=== PATIENT | female | born 1985 | race Caucasian/White ===

== ENCOUNTER 2022-05-04 16:01 | Outpatient (CLI) | payer MEDICAID, SELFPAY ==
--- NOTE | 2022-05-04 14:30 | DI.RAD_ITS ---
Exam(s) XR FOOT LT COMPLETE EXAM: XR FOOT LT COMPLETE CLINICAL HISTORY: prominent navicular: os vs avulsion vs bone cyst,[id number]. TECHNIQUE: 2D digital imaging was performed of the left foot. Three images were obtained. AP, obli que and lateral views were obtained. COMPARISON: No exams were available for comparison FINDINGS: BONES: No acute fracture is present. No bony destructive lesion is seen. There is no evidence of an a ccessory ossicle. JOINTS: No dislocation present. SOFT TISSUE: Normal. IMPRESSION: Unremarkable radiographs of the left foot. DATA REPOSITORY: RADIATION DOSE DELIVERED:
--- NOTE | 2022-05-04 14:30 | DI.RAD_ITS ---
Exam(s) XR FOOT RT COMPLETE EXAM: XR FOOT RT COMPLETE CLINICAL HISTORY: for comparison, bony prominence lt ankle. TECHNIQUE: 2D digital imaging was performed of the right foot. Three images were obtained. AP, obl ique and lateral views were obtained. COMPARISON: None. FINDINGS: BONES: No acute fracture is present. No bony destructive lesion is seen. JOINTS: No dislocation present. SOFT TISSUE: Normal. IMPRESSION: Unremarkable radiographs of the right foot. DATA REPOSITORY: RADIATION DOSE DELIVERED:
== END 2022-05-04 16:21 ==
LOC: DI 16:03
PROVIDERS: PCP Family Medicine; Visit Provider Podiatrist Foot & Ankle Surgery
DX: M89.8X7 Other specified disorders of bone, ankle and foot (principal)
CPT/HCPCS: 73630

== ENCOUNTER 2024-03-05 13:49 | Emergency (ER) | payer MEDICAID, SELFPAY ==
[2024-03-05 13:53] VITALS: BP 192/144; PULSE 102; RESP 18; TEMP 37.1; O2SAT 99
--- NOTE | 2024-03-05 14:00 | DI.CT_ITS ---
Exam(s) CT HEAD CERVICAL SPINE WO EXAM: CT HEAD CERVICAL SPINE WO CLINICAL HISTORY: fall, left head and neck pain. TECHNIQUE: Imaging Protocol: Axial computed tomography images with coronal and sagittal reformatted images were created and reviewed COMPARISON: No exams were available for comparison FINDINGS: Head CT Ventricles and Extra axial spaces: Normal in size and morphology for the patient's age. Hemorrhage: None. Cerebral parenchyma: No evidence of mass or acute infarct. Midline shift: None. Brainstem/Cerebellum: Normal. Calvarium: Normal. Visualized Paranasal sinuses/Mastoids: Clear. Soft tissues: Unremarkable. Cervical Spine CT BONES: Vertebral body heights are maintained. Alignment is normal. There is no evidence of acute frac ture. Multiple dental caries. SOFT TISSUES: No paraspinal hematoma. The airway appears intact. No pneumothorax is seen at the lung apices. IMPRESSION: Head CT: No acute abnormality. C-spine CT: Dental disease. No acute cervical spine abnormality. RADIATION DOSE DELIVERED: Total DLP DATA REPOSITORY: All CT scans at this facility are submitted to the National Radiology Data Registry (NRDR) Dose Index Registry (DIR) with the [employer] (A[employer]). RADIATION OPTIMIZATION: All CT scans at this facility use at least one of these dose optimization te chniques: automated exposure control; mA and/or kV adjustment per patient size (includes targeted exa ms where dose is matched to clinical indication); or iterative reconstruction.
--- NOTE | 2024-03-05 14:04 | DI.RAD_ITS ---
Exam(s) XR FOREARM LT XR ELBOW LT COMPLETE EXAM: XR FOREARM LT CLINICAL HISTORY: fall, left forarm abd elbow pain. TECHNIQUE: 2D digital imaging was performed. Two views of the forearm. Three views of the elbow. COMPARISON: CR,XR XR ELBOW LT COMPLETE from 03/05/2024 FINDINGS: Exam mildly limited by overlying clothing. BONES: No acute fracture is present. No bony destructive lesion is seen. The elbow and wrist joints a re unremarkable. No elbow joint effusion. SOFT TISSUE: Normal. IMPRESSION: Unremarkable radiographs of the left forearm and left elbow. DATA REPOSITORY: RADIATION DOSE DELIVERED:
--- NOTE | 2024-03-05 14:04 | DI.CT_ITS ---
Exam(s) CT CHEST W CT THORACIC SPINE RECONS EXAM: CT CHEST W CLINICAL HISTORY: fall, left chest pain, clav fx, shoulder pain TECHNIQUE: Imaging Protocol: Axial computed tomography images with coronal and sagittal reformatted images were created and reviewed. Computer aided detection (CAD) was utilized. Axial, coronal and sagittal images of the thoracic spine were reconstructed from the chest CT in bone and soft tissue algorithm. CONTRAST MATERIAL: Intravenous: Omnipaque 350 Contrast volume:70 ml. COMPARISON: CT CT HEAD CERVICAL SPINE WO from 03/05/[address] THORACIC SPINE RECONS from 03/05/2024 FINDINGS: Pulmonary parenchyma: No consolidation. No dominant measurable mass. Tracheobronchial tree: No bronchiectasis or mucous plugging. Mediastinum and Macy: No dominant adenopathy or fluid collection. Status post left thyroidectomy. Pleura: No effusion. No pneumothorax. Heart: The heart is not dilated. No coronary artery calcifications are seen. Aorta: Thoracic aorta non-dilated. Mild atherosclerotic changes. Pulmonary arteries: No gross evidence of emboli. Upper abdomen: No acute findings. Status post cholecystectomy. Bones: Degenerative changes in the spine. Fracture mid clavicle with mild displacement. Soft tissues: Mild stranding in the fat in the left upper chest near the clavicle fracture. No hemat john. IMPRESSION: Left clavicle fracture with mild displacement. No additional fractures. No acute pulmonary abnormal ity. RADIATION DOSE DELIVERED: Total DLP DATA REPOSITORY: All CT scans at this facility are submitted to the National Radiology Data Registry (NRDR) Dose Index Registry (DIR) with the [employer] (ACR). RADIATION OPTIMIZATION: All CT scans at this facility use at least one of these dose optimization te chniques: automated exposure control; mA and/or kV adjustment per patient size (includes targeted exa ms where dose is matched to clinical indication); or iterative reconstruction.
--- NOTE | 2024-03-05 14:10 | W.ED.GENAD ---
Discharge Plan Disposition Patient Disposition: Home Condition: Good Discharge Details Clinical Impression: Closed fracture of left clavicle, Injury of left shoulder, Inflammation of bursa Primary Care Provider: Asif Garcia ED Provider: Efraín Trinidad Home Meds and New Rx's Prescriptions: New lidocaine [Lidoderm] 5 % adhesive patch,medicated 1 patch Topical Q24H Qty: 15 0RF Continued fluticasone propionate [Flovent HFA] 44 mcg/actuation HFA aerosol inhaler 2 puff inhalation BID Rx Instructions: administer with spacer methylphenidate HCl [Ritalin] 20 mg tablet 20 mg PO TID ferrous sulfate 325 mg (65 mg iron) tablet 325 mg PO DAILY fluticasone propionate 110 mcg/actuation HFA aerosol inhaler 2 puff inhalation BID pioglitazone 15 mg tablet 15 mg PO DAILY colchicine 0.6 mg capsule 0.6 mg PO BID albuterol 90 mcg/actuation aerosol 90 mcg inhalation QID PRN Discharge Instructions Instructions: Broken Collarbone ED, Bursitis ED Additional Instructions: At this time the imaging of your head neck chest shoulder and arm demonstrate no new fractures aside for the clavicle fracture. I suspect there is inflammation of the bursa in your shoulder as well as potential mild injury in your rotator cuff. Please apply the Voltaren gel 2-3 times per day to your left shoulder. Please apply the Lidoderm patches every day to your clavicle. Please continue to try to move your left shoulder as feasible to prevent frozen shoulder syndrome. Please continue to take NSAID therapy. The maximum doses of Tylenol is 1000 mg every 6 hours and the maximum dose of Motrin is 800 mg every 6 hours. Please follow-up closely with the parts specialist Dr. Park in [place]. Please continue to use the sling as needed for support and pain control. If you notice any worsening of your symptoms, or any new symptoms such as vomiting, diarrhea, fever, chills, shortness of breath, chest pain, numbness, weakness, or fainting , please return immediately to the emergency department for reevaluation. Please follow up with your primary care provider as soon as possible for reassessment and reevaluation. As always, it was a pleasure participating in your medical care today. Referrals: Asif Garcia [Primary Care Provider] - HPI General Date/Time Provider Initiated Documentation: 03/05/24 13:54. HPI Narrative: This is a 38-year-old female with a past medical history of type 2 diabetes, obstructive sleep apnea, hypertension, high cholesterol, depression, asthma, who presents today for evaluation of left head neck shoulder clavicle back and chest pain. Patient states that 2 days ago on Wednesday she fell 4 to 5 feet off of a porch and landed on her left hand side. She had a notable clavicle fracture that she self diagnosed at that time. She went to [facility] where she had an x-ray performed of her clavicle which demonstrated it being broken. She states that the pain was mild everywhere else at that time and otherwise controllable with Tylenol Motrin. However over the last 24 to 48 hours she has had notable worsening of the pain. And then earlier this morning she heard a snap and a pop in the left clavicular region. Since then she has had notable worsening of her pain, as well as continued pain throughout her left shoulder and elbow chest head and neck. It is painful to move. She has been using her sling without any significant improvement. She has been taking Tylenol Motrin without significant improvement. She states that prior to this event this morning she was able to perform other activities and movements well without significant difficulty. Related Data Home Medications ?Medication ?Instructions ?Recorded ?Confirmed colchicine 0.6 mg capsule 0.6 mg PO BID 05/04/22 03/05/24 ferrous sulfate 325 mg (65 mg 325 mg PO DAILY 05/04/22 03/05/24 iron) tablet fluticasone propionate 110 2 puff inhalation BID 05/04/22 03/05/24 mcg/actuation HFA aerosol inhaler fluticasone propionate 44 2 puff inhalation BID 05/04/22 03/05/24 mcg/actuation HFA aerosol inhaler (Flovent HFA) methylphenidate HCl 20 mg tablet 20 mg PO TID 05/04/22 03/05/24 (Ritalin) pioglitazone 15 mg tablet 15 mg PO DAILY 05/04/22 03/05/24 albuterol 90 mcg/actuation aerosol 90 mcg inhalation QID PRN 03/05/24 03/05/24 inhaler lidocaine 5 % topical patch 1 patch topical Q24H #15 ea 03/05/24 (Lidoderm) Previous Rx's ?Medication ?Instructions ?Recorded lidocaine 5 % topical patch 1 patch topical Q24H #15 ea 03/05/24 (Lidoderm) Allergies Allergy/AdvReac Type Severity Reaction Status Date / Time amoxicillin (Amoxicillin) Allergy Severe hives Unverified 03/05/24 14:19 clavulanic acid Allergy Severe hives Unverified 03/05/24 14:19 propranolol Allergy Severe hives Unverified 03/05/24 14:19 tramodol Allergy Other (See Uncoded 03/05/24 14:19 Comment) General Stated Complaint: Orthopedic JUSTINE: 4 Review of Systems All systems reviewed & are unremarkable except as noted in HPI and below Exam Narrative Exam Narrative: 1.Const: Well-nourished, Well-developed, appearing stated age 2.Eyes: PERRL, no conjunctival injection, and symmetrical lids. 3.ENT: Atraumatic external nose and ears. Moist MM. Neck: Symmetric, trachea midline, No thyromegaly. There is no evidence of raccoon eyes, granados sign, CSF rhinorrhea, cranial crepitus, hemotympanum, exophthalmos, or hyphema. Patient demonstrates intact dentition with no signs of tooth avulsion or fracture, no signs of jaw deformity, no evidence of a LeFort's fracture, with an intact palate, nose and orbital region. There is no evidence of a nasal septal hematoma. No proptosis. Jaw closes symmetrically. Airway is clear. Mild left-sided mastoid tenderness, but no bruising or depressions. Mild left-sided scalp tenderness but no depressions. 4.CVS: +S1/S2, Peripheral pulses 2+ and equal in all extremities. Brisk capillary refill in all extremities. 5.RESP: Unlabored respiratory effort. Clear to auscultation bilaterally. No wheezes rales or rhonchi 6.GI: Soft, Nontender/Nondistended, No hepatosplenomegaly. No guarding or rebound. 7.MSK: Right upper extremity and bilateral lower extremities unremarkable. Left upper extremity demonstrates notably deformed clavicle without significant tenting or evidence of bony protrusion, however there is a notable lump that is present for what appears to be a mid clavicular fracture. Notable tenderness there, throughout the shoulder, throughout the humerus and the elbow with no focality to the pain. Notable pain with movement of any of these components or joints. 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 No actual focal pain in the hand or wrist though. Sensation intact, radial pulse +2 bilaterally. No significant scapular tenderness, however notable left-sided rib tenderness throughout. Patient also has midline T6 tenderness as well as left lateral C4 and 5 tenderness. No midline tenderness in the C-spine vertebra otherwise. Remainder of the midline spinal assessment is nontender. 8.Skin: Warm, Dry. No rashes or lesions. 9.Neuro: newspaper peddler II-XII grossly intact. Sensation grossly intact, no focal neurologic deficits. 10.Psych: (AAO) x3. Appropriate mood and affect Course Vital Signs Vital signs: Vital Signs Temperature 37.1 C 03/05/24 13:53 Pulse 102 H 03/05/24 13:53 Respiratory Rate 18 03/05/24 13:53 Blood Pressure 192/144 H 03/05/24 13:53 Pulse Oximetry 99 03/05/24 13:53 Temperature 37.1 C 03/05/24 13:53 Temperature Source Temporal Artery Scan 03/05/24 13:53 Pulse 102 H 03/05/24 13:53 Respiratory Rate 18 03/05/24 13:53 Blood Pressure 192/144 H 03/05/24 13:53 Blood Pressure Position Sitting 03/05/24 13:53 Pulse Oximetry 99 03/05/24 13:53 Oxygen Delivery Method Room Air 03/05/24 13:53 Oxygen Flow Rate 0 03/05/24 13:53 Pain Level 10 03/05/24 13:53 Medical Decision Making This is a 38-year-old female with a past medical history of type 2 diabetes, obstructive sleep apnea, hypertension, high cholesterol, depression, asthma, who presents today for evaluation of left head neck shoulder clavicle back and chest pain. Patient states that 2 days ago on Wednesday she fell 4 to 5 feet off of a porch and landed on her left hand side. She had a notable clavicle fracture that she self diagnosed at that time. She went to [facility] where she had an x-ray performed of her clavicle which demonstrated it being broken. She states that the pain was mild everywhere else at that time and otherwise controllable with Tylenol Motrin. However over the last 24 to 48 hours she has had notable worsening of the pain. And then earlier this morning she heard a snap and a pop in the left clavicular region. Since then she has had notable worsening of her pain, as well as continued pain throughout her left shoulder and elbow chest head and neck. It is painful to move. She has been using her sling without any significant improvement. She has been taking Tylenol Motrin without significant improvement. She states that prior to this event this morning she was able to perform other activities and movements well without significant difficulty. Exam demonstrates notable clavicle deformity with notable lump without evidence of actual tenting or bony protuberance. Distally she has intact sensation and intact radial pulses. She has tenderness over the clavicle shoulder elbow humerus left neck, midline thoracic spine, left head and face. Patient is concerned about the areas of tenderness and injury, and my differential certainly includes potential pneumothorax, rib fractures, or other intracranial etiology. At [facility] she did receive a clavicle x-ray, but I am concerned that there may now be additional movement of the clavicle itself, which does elicit potential concern for vascular compromise. Will get CT contrasted study, we will get imaging of the chest shoulder head and neck. Will get x-rays of the upper extremity on the left. Will give morphine and Toradol for pain control. 4:14 PM X-rays negative for evidence of new acute process in addition to the clavicle fracture. Clavicle fracture appears mildly impacted, no tenting or evidence of vascular compromise. Patient continues to have tenderness in that area. No evidence of significant neurovascular compromise at this time. No evidence of bleed or other significant traumatic abnormality including pneumothorax rib fracture or other etiology for the head cervical spine chest shoulder elbow and forearm. I suspect a notable component of the patient's pain in her left shoulder is from irritation from the bursal sacs at this stage, worsened by the fact of her clavicle fracture reducing stability, and then potentially further enhanced by potential rotator cuff injury which cannot be fully assessed secondary to the patient's sensitivity at this time. Patient does have a referral with Dr. Samayoa in [place]. Recommend close follow-up with this. Recommend continued maximum NSAID therapy with Tylenol and Motrin. Will give Voltaren gel for home use. Will give a 4 tablets of morphine IR for home use as well for breakthrough pain only. Discussed red flags for which to return. I have extensively reviewed the treatment plan and discharge instructions with the patient and their family. I have addressed all patient concerns at this time. The patient and family was made aware of what symptoms to monitor for that would warrant a return to the emergency department. Discussed the plan with the patient and family, they demonstrate verbal understanding and agreement with our assessment and plan at this time. The documentation in this chart was dictated using [employer] dictation software. Please excuse any dictation errors. FINDINGS: Brain: Normal. No hemorrhage. Unremarkable white matter. No mass effect. Cerebral ventricles: No ventriculomegaly. Paranasal sinuses: Visualized sinuses are unremarkable. No fluid levels. Mastoid air cells: Visualized mastoid air cells are well aerated. Teeth: Odontogenic disease present. Bones: Unremarkable. No acute fracture. Soft tissues: Right nasal piercing noted. IMPRESSION: No evidence for acute intracranial abnormality. FINDINGS: Bones: No acute cervical spine fracture. Normal alignment. No significant disc bulge or herniation. No severe spinal canal stenosis. No significant neural foraminal narrowing. There is a minimally impacted left clavicular fracture. Lungs: Lung apices are normal. Soft tissues: Unremarkable. IMPRESSION: No evidence for acute cervical posttraumatic abnormality. Left clavicular fracture noted. Thank you for allowing us to participate in the care of your patient. Dictated and Authenticated by: Yessenia Flanagan MD 03/05/2024 3:53 PM Eastern Time (US & Des) FINDINGS: Bones/joints: Left clavicular fracture. Soft tissues: Unremarkable. IMPRESSION: Left clavicular fracture. No additional acute posttraumatic abnormality. Thank you for allowing us to participate in the care of your patient. Dictated and Authenticated by: Yessenia Flanagan MD 03/05/2024 4:03 PM Eastern Time (US & Des) FINDINGS: Thyroid: Status post left thyroidectomy. Lungs: Unremarkable. No consolidation. No masses. Pleural spaces: Unremarkable. No pneumothorax. No pleural effusion. Heart: Unremarkable. No cardiomegaly. No pericardial effusion. Lymph nodes: Unremarkable. No enlarged lymph nodes. Vasculature: Unremarkable. No aortic aneurysm. Gallbladder and biliary ducts: Status post cholecystectomy. Bones/joints: There is a nondisplaced left clavicular fracture at the mid clavicle level. No additional fracture seen. Soft tissues: Unremarkable. IMPRESSION: Left clavicular fracture. Thank you for allowing us to participate in the care of your patient. Dictated and Authenticated by: Yessenia Flanagan MD 03/05/2024 4:01 PM Eastern Time (US & Des) FINDINGS: Bones/joints: Normal. Soft tissues: Normal. IMPRESSION: No evidence for fracture. Thank you for allowing us to participate in the care of your patient. Dictated and Authenticated by: Yessenia Flanagan MD 03/05/2024 4:08 PM Eastern Time (US & Des) FINDINGS: Bones/joints: Normal. Soft tissues: Normal. IMPRESSION: No evidence for fracture. Thank you for allowing us to participate in the care of your patient. Dictated and Authenticated by: Yessenia Flanagan MD 03/05/2024 4:08 PM Eastern Time (US & Des) Quality:SDOH Health Related Social Needs: No Data to Display PFSH All Active Problems (Updated 03/05/24 @ 16:21 by Efraín Trinidad DO) Inflammation of bursa (Acute) Injury of left shoulder (Acute) Closed fracture of left clavicle (Acute) Diabetes mellitus type 2, uncontrolled (Acute) Obstructive sleep apnea (Chronic) Hypertension (Chronic) Hyperlipidemia (Acute) Fatty liver (Acute) Depressive disorder (Chronic) Asthma (Chronic) Bony prominence palpable in left ankle (Acute) Medical History Sciatica Carpal tunnel syndrome Social History Smoking/Tobacco Use Status: Never Smoking risk assessment performed?: Yes Alcohol Intake: former Drug use: Never Housing: house Do you feel safe at home: Yes Do you feel safe in your relationship?: Yes
[2024-03-05] MEDS: Ketorolac 15 MG/ML VIAL IVP (14:22)
[2024-03-05] MEDS: MORPHine 4 MG/ML SYR IVP (14:22)
[2024-03-05 14:29] LABS: Abs Immature Grans 0.04 10^3/uL (0.0-0.06); Absolute Basophil Count 0.03 10^3/uL (0.0-0.2); Absolute Eosinophil Count 0.07 10^3/uL (0.0-0.7); Absolute Lymphocyte Count 3.38 10^3/uL (1.2-3.4); Absolute Monocyte Count 0.52 10^3/uL (0.1-0.8); Absolute Neutrophil Count 6.73 10^3/uL (1.2-6.7); Basophils % 0.3 %; Eosinophils % 0.6 %; HGB 14.4 g/dL (11.2-15.7); Immature Grans % 0.4 %; Lymphocytes % 31.4 %; MCH 30.1 pg (27.0-33.0); MCHC 34.3 % (32.0-36.0); MCV 88 fL (80-95); MPV 9.6 fL (8.0-11.0); Monocytes % 4.8 %; Neutrophils % 62.5 %; Platelet Count 284 10^3/uL (130-400); RBC 4.79 10^6/uL (3.93-5.22); RDW 11.7 % (11.7-14.6); RDW-SD 37.9 fL; WBC 10.77 10^3/uL (4.4-10.8)
[2024-03-05] MEDS: Omnipaque 350 MG/ML 100 ML BTL IJ (14:39)
[2024-03-05 14:40] LABS: ALT 21 U/L (14-59); AST 9 U/L (15-37); Alkaline Phosphatase 69 U/L (46-116); Anion Gap 10.4 mmol/L (3-11); BUN 13 mg/dL (7-18); Bilirubin, Total 0.52 mg/dL (0.2-1.0); CO2 25.6 mmol/L (21.0-32.0); CREATININE 0.7 mg/dL (0.55-1.02); Chloride 103 mmol/L (98-107); Estimated GFR 114.88 (mL/min/1.73m2); Glucose 275 mg/dL (74-106); Potassium 3.9 mmol/L (3.5-5.1); Sodium 139 mmol/L (136-145); Total Protein 8.4 g/dL (6.4-8.2)
[2024-03-05] MEDS: Normal Saline - Diluent 50 ML VIAL IJ (14:41)
[2024-03-05] MEDS: Lidocaine 5% Patch 1 PATCH TP (15:13)
[2024-03-05] MEDS: HYDROmorphone 2 MG/ML SYR 1 MG IVP (15:22)
[2024-03-05 15:27] VITALS: BP 172/121; PULSE 95; RESP 18; O2SAT 96
--- NOTE | 2024-03-05 15:54 | DI.VRAD_ITS ---
PROCEDURE INFORMATION: Exam: CT Head Without Contrast Exam date and time: 03/05/2024 2:38 PM Age: 38 years old Clinical indication: Injury or trauma; Blunt trauma (contusions or hematomas); Patient HX: Fall, left head and neck pain TECHNIQUE: Imaging protocol: Computed tomography of the head without contrast. COMPARISON: No relevant prior studies available. FINDINGS: Brain: Normal. No hemorrhage. Unremarkable white matter. No mass effect. Cerebral ventricles: No ventriculomegaly. Paranasal sinuses: Visualized sinuses are unremarkable. No fluid levels. Mastoid air cells: Visualized mastoid air cells are well aerated. Teeth: Odontogenic disease present. Bones: Unremarkable. No acute fracture. Soft tissues: Right nasal piercing noted. IMPRESSION: No evidence for acute intracranial abnormality. PROCEDURE INFORMATION: Exam: CT Cervical Spine Without Contrast Exam date and time: 03/05/2024 2:38 PM Age: 38 years old Clinical indication: Injury or trauma; Blunt trauma (contusions or hematomas); Patient HX: Fall, left head and neck pain TECHNIQUE: Imaging protocol: Computed tomography of the cervical spine without contrast. COMPARISON: No relevant prior studies available. FINDINGS: Bones: No acute cervical spine fracture. Normal alignment. No significant disc bulge or herniation. No severe spinal canal stenosis. No significant neural foraminal narrowing. There is a minimally impacted left clavicular fracture. Lungs: Lung apices are normal. Soft tissues: Unremarkable. IMPRESSION: No evidence for acute cervical posttraumatic abnormality. Left clavicular fracture noted. Dictated and Authenticated by: Yessenia Flanagan MD. Ordering:ROSELYN Kenny MD
--- NOTE | 2024-03-05 16:01 | DI.VRAD_ITS ---
PROCEDURE INFORMATION: Exam: CT Chest With Contrast; Diagnostic Exam date and time: 03/05/2024 2:44 PM Age: 38 years old Clinical indication: Other: Lt shoulder/cp; Patient HX: Known lt clavicle FX; Pain S/P fall. TECHNIQUE: Imaging protocol: Diagnostic computed tomography of the chest with contrast. 3D rendering (Not supervised by radiologist): MIP and/or 3D reconstructed images were created by the technologist. Radiation optimization: All CT scans at this facility use at least one of these dose optimization techniques: automated exposure control; mA and/or kV adjustment per patient size (includes targeted exams where dose is matched to clinical indication); or iterative reconstruction. Contrast material: OMNIPAQUE 350; Contrast volume: 70 ml; Contrast route: INTRAVENOUS (IV); COMPARISON: CT THORACIC SPINE RECONS 03/05/2024 2:44 PM FINDINGS: Thyroid: Status post left thyroidectomy. Lungs: Unremarkable. No consolidation. No masses. Pleural spaces: Unremarkable. No pneumothorax. No pleural effusion. Heart: Unremarkable. No cardiomegaly. No pericardial effusion. Lymph nodes: Unremarkable. No enlarged lymph nodes. Vasculature: Unremarkable. No aortic aneurysm. Gallbladder and biliary ducts: Status post cholecystectomy. Bones/joints: There is a nondisplaced left clavicular fracture at the mid clavicle level. No additional fracture seen. Soft tissues: Unremarkable. IMPRESSION: Left clavicular fracture. Dictated and Authenticated by: Yessenia Flanagan MD. Ordering:ROSELYN Kenny MD
--- NOTE | 2024-03-05 16:04 | DI.VRAD_ITS ---
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 Radiation optimization: All CT scans at this facility use at least one of these dose optimization techniques: automated exposure control; mA and/or kV adjustment per patient size (includes targeted exams where dose is matched to clinical indication); or iterative reconstruction. COMPARISON: CT CHEST W 03/05/2024 2:44 PM FINDINGS: Bones/joints: Left clavicular fracture. Soft tissues: Unremarkable. IMPRESSION: Left clavicular fracture. No additional acute posttraumatic abnormality. Dictated and Authenticated by: Yessenia Flanagan MD. Ordering:ROSELYN Kenny MD
--- NOTE | 2024-03-05 16:08 | DI.VRAD_ITS ---
PROCEDURE INFORMATION: Exam: XR Left Elbow Exam date and time: 03/05/2024 3:04 PM Age: 38 years old Clinical indication: Elbow; Left; Patient HX: Pain S/P fall TECHNIQUE: Imaging protocol: Radiologic exam of the left elbow. Views: 3 or more views. COMPARISON: CR XR FOREARM LT 03/05/2024 3:03 PM FINDINGS: Bones/joints: Normal. Soft tissues: Normal. IMPRESSION: No evidence for fracture. Dictated and Authenticated by: Yessenia Flanagan MD. Ordering:ROSELYN Kenny MD
--- NOTE | 2024-03-05 16:09 | DI.VRAD_ITS ---
PROCEDURE INFORMATION: Exam: XR Left Forearm Exam date and time: 03/05/2024 3:03 PM Age: 38 years old Clinical indication: Lower or forearm and elbow; Left; Patient HX: Pain S/P fall TECHNIQUE: Imaging protocol: Radiologic exam of the left forearm. Views: 2 views. COMPARISON: No relevant prior studies available. FINDINGS: Bones/joints: Normal. Soft tissues: Normal. IMPRESSION: No evidence for fracture. Dictated and Authenticated by: Yessenia Flanagan MD. Ordering:ROSELYN Kenny MD
[2024-03-05] MEDS: Diclofenac 1% Gel 100 GM TUBE TP (16:53)
[2024-03-05] MEDS: MORPHine IR 15 MG TAB, 4 TABS/BTL PO (16:53)
[2024-03-05 17:00] VITALS: BP 169/120; PULSE 86; RESP 18; O2SAT 97
== END 2024-03-05 17:02 | disposition home or self-care (01) ==
PROVIDERS: Emergency Provider Student in an Organized Health Care Education/Training Program; PCP Family Medicine
DX: S42.025A Nondisplaced fracture of shaft of left clavicle, initial encounter for closed fracture (principal); M75.42 Impingement syndrome of left shoulder; E11.9 Type 2 diabetes mellitus without complications; I10 Essential (primary) hypertension; E78.5 Hyperlipidemia, unspecified; Z79.84 Long term (current) use of oral hypoglycemic drugs; W17.89XA Other fall from one level to another, initial encounter; Y93.89 Activity, other specified; Y92.018 Other place in single-family (private) house as the place of occurrence of the external cause
CPT/HCPCS: 80053; 96374; 96375; 99285; 70450; 71260; 72125; 73080; 73090; 85025; J1171; J1885; J2270; J3490